=== PATIENT | female | born 1955 | race Two or more races ===

== ENCOUNTER 2017-11-29 23:48 | Emergency (ER) | payer OTHER ==
[~2017-11-29] VITALS: Ht 160 cm; Wt 67.1 kg
[~2017-11-29 23:48] MED LIST: ALBUTEROL SULF8.5 GM INH; ATARAX50 MG ORAL; AZITHROMYCIN250 MG ORAL; BENADRYL25 M3 PO; BENADRYL25 MG PO; DIABETA5 MG PO; ELIMITE 5% CREA60 GM TOPIC; FAMOTIDINE20 MG ORAL; GLIPIZIDE5 MG ORAL; JANUMET 50-1,01 EACH ORAL; LORATADINE10 M1 PO; LOSARTAN POTASS50 MG ORAL; PERMETHRIN60 GM TOPIC; POTASSIUM CHLO20 ME3 PO; PREDNISONE20 MG ORAL; ROBITUSSIN DM5 ML PO
[2017-11-30 00:10] VITALS: BP 157/72
[2017-11-30] MEDS ORDERED: FLONASE ALLERG9.9 ML NS (01:43)
[2017-11-30] MEDS ORDERED: PHENERGAN6.25 MG/5 ORAL (01:43)
[2017-11-30 01:59] VITALS: BP 164/77
--- NOTE | 2017-11-30 02:54 | Emergency Room Report ---
History of Present Illness General Chief Complaint: Flu Like Symptoms Source: Patient Present Illness HPI 62-year-old female walks in with 2-3 days of dry cough, nasal congestion, bilateral earache Denies fevers, chills, shortness of breath, chest pain no History of smoking, COPD or asthma Denies myalgias or other flulike symptoms Allergies: Coded Allergies: CODEINE (Verified Allergy, Unknown, 11/30/17) PENICILLINS (Verified Allergy, Unknown, 11/30/17) Patient History Past Medical History: none, old chart reviewed Past Surgical History: none Pertinent Family History: none Social History: Denies: smoking, alcohol use, drug use Last Menstrual Period: n/a Now: No Immunizations: UTD Reviewed Nursing Documentation: PMH: Agreed; PSxH: Agreed Nursing Documentation-PMH Hx Cardiac Problems: Yes Hx Hypertension: Yes Hx Diabetes: Yes Review of Systems All Other Systems: negative except mentioned in HPI Physical Exam Vital Signs Date Time Temp Pulse Resp B/P (MAP) Pulse Ox O2 Delivery O2 Flow Rate FiO2 11/30/17 00:04 98.0 88 16 157/72 97 98.1 11/30/17 01:59 Room Air Sp02 EP Interpretation: reviewed, normal General Appearance: normal inspection, well appearing, no apparent distress, alert, GCS 15, non-toxic Head: normocephalic, atraumatic Eyes: bilateral eye PERRL, bilateral eye EOMI ENT: normal ENT inspection, hearing grossly normal, normal pharynx, no angioedema, normal voice, TMs + canals normal, uvula midline, moist mucus membranes Neck: normal inspection, full range of motion, supple, thyroid normal, no meningismus, no bony tend Respiratory: normal inspection, lungs clear, normal breath sounds, no rhonchi, no respiratory distress, no retraction, no accessory muscle use, no wheezing, speaking full sentences Cardiovascular #1: regular rate, rhythm, no edema, no JVD, normal capillary refill Gastrointestinal: normal inspection, normal bowel sounds, non tender, soft, no mass, no peritonitis, non-distended, no guarding, no hernia, no pulsatile mass Genitourinary: no CVA tenderness Musculoskeletal: normal inspection, back normal, normal range of motion, no calf tenderness, pelvis stable, Wilmar's Sign negative Neurologic: normal inspection, alert, oriented x3, responsive, 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, motor strength/tone normal, cerebellar normal, normal gait, speech normal Psychiatric: normal inspection, judgement/insight normal, mood/affect normal, no suicidal/homicidal ideation, no delusions Skin: normal inspection, normal color, no rash Lymphatic: normal inspection, no adenopathy Medical Decision Making Diagnostic Impression: Primary Impression: URI (upper respiratory infection) Qualified Codes: J06.9 - Acute upper respiratory infection, unspecified ER Course Likely viral URI Vital signs stable afebrile, nonseptic appearing Lungs clear to auscultation, no wheezing or rhonchi Suspicion for asthma, pneumonia Refused ventolin Rx ER course: Patient has remained stable during ED stay. Disposition: Patient is to be discharged to home. Prescriptions given are Promethazine, flonase Patient is instructed to follow up with their primary care doctor within 5 days. Strict return precautions discussed with patient such as fever, chills, worsening/severe pain, nausea, vomiting, which may indicate severe illness. Patient verbalizes understanding and agrees with plan. Please note that this Emergency Department Report was dictated using [employer] director technology software, occasionally this can lead to erroneous entry secondary to interpretation by the dictation equipment Last Vital Signs Date Time Temp Pulse Resp B/P (MAP) Pulse Ox O2 Delivery O2 Flow Rate FiO2 11/30/17 01:59 88 18 164/77 100 Room Air 11/30/17 00:10 98.0 98.0 Status: improved Disposition: HOME, SELF-CARE Condition: Improved Scripts Promethazine/Dextromethorphan (Promethazine-Dm Syrup) 473 Ml Syrup 1 TSP ORAL Q6H PRN for For Cough, #118 ML 0 Refills Prov: DAWN FELIX M.D. 11/30/17 Fluticasone Propionate (Flonase Allergy Relief) 9.9 Ml Scott.susp 9.9 ML NS BID for nasal congestion, earache for 7 Days, #1 UNIT Prov: DAWN FELIX M.D. 11/30/17 DAWN FELIX M.D. Nov 30, 2017 02:53
== END 2017-11-30 02:00 | disposition home or self-care (01) ==
LOC: EMR 11-30 00:10
DX: J06.9 Acute upper respiratory infection, unspecified (principal); I10 Essential (primary) hypertension; E11.9 Type 2 diabetes mellitus without complications
CPT/HCPCS: 99284

== ENCOUNTER 2019-11-30 21:27 | Emergency (ER) | payer OTHER ==
[~2019-11-30] VITALS: Ht 160 cm; Wt 67.6 kg
[~2019-11-30 21:27] MED LIST changes: +FLONASE ALLERG9.9 ML NS; +PHENERGAN6.25 MG/5 ORAL
[2019-11-30 21:40] VITALS: BP 155/69
--- NOTE | 2019-11-30 21:40 | NUR ---
ER Nurse Note: Pt walked in c/o clear discharge and slight blood from umbilicus for two days. Pt stated she had surgery on her abd 20 years ago but now states she it is infected with strong foul odor. Will continue to monitor.
[2019-11-30] MEDS ORDERED: CEPHALEXIN500 M1 ORAL (21:51)
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
[2019-11-30 22:06] VITALS: BP 155/69
--- NOTE | 2019-11-30 22:06 | NUR ---
ED Nurse Note: Umbilicus cleaned by ERMD. Pt cleared by health care Provider for discharge. DC instructions/prescription was given and explained to pt and verbalized understanding of teachings. Instructed pt to follow up with primary care physcian within one to two days. All medical deviecs such as ID band removed. Pt is AAO x4, ambulatory and left with all personal belongings.
== END 2019-11-30 22:06 | disposition home or self-care (01) ==
LOC: EMR 21:56
DX: R19.8 Other specified symptoms and signs involving the digestive system and abdomen (principal); Z88.6 Allergy status to analgesic agent; Z88.0 Allergy status to penicillin; E11.9 Type 2 diabetes mellitus without complications; I10 Essential (primary) hypertension
CPT/HCPCS: 99282

== ENCOUNTER 2020-06-11 21:20 | Emergency (ER) | payer MEDICARE, OTHER ==
[~2020-06-11] VITALS: Ht 160 cm; Wt 68.0 kg
[~2020-06-11 21:20] MED LIST changes: +CEPHALEXIN500 M1 ORAL
[2020-06-11 21:25] VITALS: BP 142/81
--- NOTE | 2020-06-11 21:25 | NUR ---
ED Nurse Note: walked in to ed c/o sore throat and cough with phlegm onset 4 days ago. denies fever, temp 98.4 at triage. denies cp. vss, nad, aaox4, ambulatory, ermd at bedside
--- NOTE | 2020-06-11 21:58 | Emergency Room Report ---
History of Present Illness General Chief Complaint: Sore Throat Present Illness HPI Patient is a 64-year-old female presents for increased congestion and sore throat. Associated nonproductive cough. Previous similar symptoms in the past. Denies any fever. Had intermittent episodes. Denies any vomiting or diarrhea. Reportedly admitting well. Denies any loss of smell. Previous similar symptoms that had resolved with codeine cough syrup. 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 Patient History Past Medical History: see triage record Reviewed Nursing Documentation: PMH: Agreed; PSxH: Agreed Nursing Documentation-PMH Hx Cardiac Problems: Yes Hx Hypertension: Yes Hx Diabetes: Yes Review of Systems All Other Systems: negative except mentioned in HPI Physical Exam Vital Signs Date Time Temp Pulse Resp B/P (MAP) Pulse Ox O2 Delivery O2 Flow Rate FiO2 06/11/20 21:23 98.4 72 16 155/83 (107) 98 Room Air General Appearance: well appearing, no apparent distress, alert, GCS 15 Head: normocephalic, atraumatic ENT: hearing grossly normal, normal voice Neck: full range of motion, supple Respiratory: lungs clear, no respiratory distress, speaking full sentences Cardiovascular #1: normal inspection, no edema Gastrointestinal: normal inspection Musculoskeletal: no calf tenderness Neurologic: alert, motor strength/tone normal, 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 Differential diagnosis include was not limited to bronchitis, pneumonia, coronavirus infection, among others. Chest x-ray was ordered due to patient's cough. Chest x-ray 1 view interpreted by me showed normal cardiac size without evident infiltrate. Patient does not appear to have any evidence of respiratory distress. Patient does not appear to require emergency interventions at this time. She is given prescription for medications for symptomatic treatment of cough. She was advised to have outpatient coronavirus testing performed. The patient is advised to follow up with primary care doctor in 1-2 days. Patient is advised to return if any worsening condition or if any changes in status that are concerning. This report is dictated with [employer] sexual health physician software which may occasionally lead to discrepancies related to use of this software. . . Last Vital Signs Date Time Temp Pulse Resp B/P (MAP) Pulse Ox O2 Delivery O2 Flow Rate FiO2 06/11/20 21:23 98.4 72 16 155/83 (107) 98 Room Air Status: improved Disposition: HOME, SELF-CARE Condition: Stable Scripts Guaifenesin/Dextromethorphan* (Guaifenesin Dm Syrup*) 5 Ml Syrup 5 ML ORAL Q8H PRN for FOR COUGH, #118 ML 0 Refills Prov: Hero Maddox MD 06/11/20 Hero Maddox MD Jun 11, 2020 21:58
[2020-06-11] MEDS ORDERED: guaiFENesin 100mg/5ml Liq ud ORAL ONE (22:00)
--- NOTE | 2020-06-11 22:00 | NUR ---
ED Nurse Note: xr at bedside
--- NOTE | 2020-06-11 22:42 | Diagnostic Imaging Report ---
EXAM: XR Chest, 1 View CLINICAL HISTORY: COUGH TECHNIQUE: Frontal view of the chest. COMPARISON: Chest radiograph dated 07/03/2015 FINDINGS: Lungs: Unremarkable. No consolidation. Pleural space: Unremarkable. No pneumothorax. Heart: Unremarkable. No cardiomegaly. Mediastinum: Unremarkable. Bones/joints: Unremarkable. IMPRESSION: No acute cardiopulmonary disease.
[2020-06-11] MEDS ORDERED: GUAIFENESIN DM118 M1 ORAL (22:45)
[2020-06-11 22:50] VITALS: BP 147/71
--- NOTE | 2020-06-11 22:50 | NUR ---
ER DISCHARGE NOTE: Patient is cleared to be discharged per ERMD, pt is aox4, on room air, with stable vital signs. pt was given dc and prescription instructions, pt was able to verbalize understanding, pt id band removed without complications. pt is able to ambulate with steady gait. pt took all belongings.
== END 2020-06-11 22:50 | disposition home or self-care (01) ==
LOC: EMR 21:55
DX: R05 Cough (principal); R07.0 Pain in throat; Z88.0 Allergy status to penicillin; Z88.6 Allergy status to analgesic agent; E11.9 Type 2 diabetes mellitus without complications; I10 Essential (primary) hypertension
CPT/HCPCS: 71045; 99283

== ENCOUNTER 2020-07-05 06:33 | Emergency (ER) | payer MEDICARE, OTHER ==
[~2020-07-05] VITALS: Ht 157.5 cm; Wt 72.6 kg
[~2020-07-05 06:33] MED LIST changes: +GUAIFENESIN DM118 M1 ORAL
--- NOTE | 2020-07-05 06:56 | NUR ---
ED Nurse Note: Patient walked in from home c/o fast heart beat, patient states she was sleeping and was awoken by it. Patient aao x 4 and ambulatory. Patient changed into gown and placed on cardiac rehab nurse. No acute distress noted during assessment. ERMD at bedside.
[2020-07-05 06:57] VITALS: BP 176/80
[2020-07-05 07:17] LABS: ANION GAP 9 mmol/L (5-15); BLOOD UREA NITROGEN 11 mg/dL (7-18); CALCIUM 9.5 MG/DL (8.5-10.1); CARBON DIOXIDE 25 MMOL/L (21-32); CHLORIDE 104 MMOL/L (98-107); CREATININE 0.9 MG/DL (0.55-1.30); POTASSIUM 3.5 MMOL/L (3.5-5.1); SODIUM 138 MMOL/L (136-145)
--- NOTE | 2020-07-05 07:20 | Emergency Room Report ---
History of Present Illness General Chief Complaint: Palpitations Source: Patient Present Illness HPI The patient states that she was woken up this a.m. with a "pounding" heart. She states that was not fast. She states it felt like it was strong and pounding. She states she has had this previously intermittently. She states she has undergone evaluation as an inpatient in the hospital for these same symptoms. She also notes that during that time she felt very short of breath. She states currently her symptoms have resolved. She denies cough or congestion. She denies fever or chills. She states that 3 weeks ago was diagnosed with COVID- 19. She states that she was told she has a mild case of this. She denies any recurrence of these symptoms. She denies chest pain. Denies abdominal pain. She denies nausea or vomiting. She denies any association with exertion. She has no other complaints. 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 Patient History Past Medical History: see triage record, DM, HTN Social History: Denies: smoking, alcohol use, drug use Reviewed Nursing Documentation: PMH: Agreed; PSxH: Agreed Nursing Documentation-PMH Hx Cardiac Problems: Yes Hx Hypertension: Yes Hx Diabetes: Yes Review of Systems All Other Systems: negative except mentioned in HPI Physical Exam Vital Signs Date Time Temp Pulse Resp B/P (MAP) Pulse Ox O2 Delivery O2 Flow Rate FiO2 07/05/20 06:37 98.4 91 16 178/75 (109) 96 Room Air Sp02 EP Interpretation: reviewed, normal General Appearance: no apparent distress, alert, GCS 15, non-toxic Head: normocephalic, atraumatic Eyes: bilateral eye normal inspection, bilateral eye PERRL ENT: hearing grossly normal, normal pharynx, no angioedema, normal voice Neck: full range of motion, supple/symm/no masses Respiratory: chest non-tender, lungs clear, normal breath sounds, no respiratory distress, no retraction, no accessory muscle use, speaking full sentences Cardiovascular #1: regular rate, rhythm, no edema Gastrointestinal: normal bowel sounds, non tender, soft, non-distended, no guarding, no rebound Rectal: deferred Musculoskeletal: back normal, normal range of motion, gait/station normal, non- tender Neurologic: alert, motor strength/tone normal, oriented x3, sensory intact, responsive, speech normal Psychiatric: judgement/insight normal, memory normal, mood/affect normal, no suicidal/homicidal ideation Skin: no rash, normal color Medical Decision Making Diagnostic Impression: Primary Impression: COVID-19 Additional Impression: Palpitations ER Course I suspect the palpitations that the patient is presenting with is a nonemergent in etiology. Regarding the history, the patient has no history of structural heart disease or coronary artery disease, no family history of sudden , has no shortness of breath, and the syncope is not exertional. On physical exam, the patient is not hypotensive, has no findings of CHF, and no significant cardiac murmur suggestive of valvular heart disease or cardiac outflow obstruction. The patient reports no history of seizure or head trauma. EKG showed no evidence of concerning findings of QT prolongation, Brugada syndrome or significant ST changes suggestive of acute ischemia, dysrhythmias or significant conduction abnormalities. On laboratory evaluation, blood sugar was normal and the patient is not anemic. The patient was counseled that, though unlikely, the possibility of an emergent cause of her palpitations may be present and that the patient should return immediately if symptoms persist or worsen. I believe the patient is stable for discharge to followup with her PMD for further workup. The patient's COVID-19 test is positive here in emergency department. Possibly the patient's symptoms could be related to COVID-19. However, the patient did state that she was positive for COVID-19 3 weeks ago. Overall she is well-appearing without any evidence of respiratory distress or symptoms. The patient's chest x-ray is clear. I will start the patient on a baby aspirin daily as a precaution given the evolving thought that COVID-19 does cause coagulopathy/pro coagulopathy. The patient was educated to follow-up closely with her primary care physician. This patient was evaluated in the context of the global COVID-19 pandemic, which necessitated consideration that the patient might be at risk for infection with the [id number] virus that causes COVID-19. Institutional protocols and algorithms that pertain to the evaluation of patients at risk for COVID-19 and the state of rapid change based on information released by multiple regulatory bodies including the CDC and federal and state organizations. These policies and algorithms were followed during the patient's care in the ED. Laboratory Tests Test 07/05/20 06:50 07/05/20 07:51 White Blood Count 9.3 K/UL (4.8-10.8) Red Blood Count 4.34 M/UL (4.20-5.40) Hemoglobin 13.4 G/DL (12.0-16.0) Hematocrit 38.3 % (37.0-47.0) Mean Corpuscular Volume 88 FL (80-99) Mean Corpuscular Hemoglobin 31.0 PG (27.0-31.0) Mean Corpuscular Hemoglobin Concent 35.1 G/DL (32.0-36.0) Red Cell Distribution Width 12.9 % (11.6-14.8) Platelet Count 401 K/UL (150-450) Mean Platelet Volume 7.1 FL (6.5-10.1) Neutrophils (%) (Auto) 69.2 % (45.0-75.0) Lymphocytes (%) (Auto) 22.2 % (20.0-45.0) Monocytes (%) (Auto) 6.4 % (1.0-10.0) Eosinophils (%) (Auto) 1.8 % (0.0-3.0) Basophils (%) (Auto) 0.4 % (0.0-2.0) Sodium Level 138 MMOL/L (136-145) Potassium Level 3.5 MMOL/L (3.5-5.1) Chloride Level 104 MMOL/L (98-107) Carbon Dioxide Level 25 MMOL/L (21-32) Anion Gap 9 mmol/L (5-15) Blood Urea Nitrogen 11 mg/dL (7-18) Creatinine 0.9 MG/DL (0.55-1.30) Estimated Glomerular Filtration Rate > 60 mL/min (>60) Glucose Level 200 MG/DL (74-106) H Calcium Level 9.5 MG/DL (8.5-10.1) Total Bilirubin 0.8 MG/DL (0.2-1.0) Aspartate Amino Transferase (AST) 20 U/L (15-37) Alanine Aminotransferase (ALT) 30 U/L (12-78) Alkaline Phosphatase 87 U/L (46-116) Troponin I 0.000 ng/mL (0.000-0.056) Total Protein 7.0 G/DL (6.4-8.2) Albumin 4.0 G/DL (3.4-5.0) Globulin 3.0 g/dL Albumin/Globulin Ratio 1.3 (1.0-2.7) Thyroid Stimulating Hormone (TSH) 2.998 uiU/mL (0.358-3.740) Free Thyroxine 1.16 NG/DL (0.76-1.46) Urine Color Pale yellow Urine Appearance Clear Urine pH 6 (4.5-8.0) Urine Specific [place] 1.005 (1.005-1.035) Urine Protein Negative (NEGATIVE) Urine Glucose (UA) Negative (NEGATIVE) Urine Ketones Negative (NEGATIVE) Urine Blood Negative (NEGATIVE) Urine Nitrite Negative (NEGATIVE) Urine Bilirubin Negative (NEGATIVE) Urine Urobilinogen Normal MG/DL (0.0-1.0) Urine Leukocyte Esterase Negative (NEGATIVE) Microbiology Date/Time Source Procedure Growth Status 07/05/20 06:50 Nasopharynx SARS-CoV-2 RdRp Gene Assay - Final Complete EKG Diagnostic Results Troponin ordered: Yes EKG Time: 06:42 EP Interpretation: Y Rate: normal Rhythm: NSR ST Segments: no acute changes Rhythm Strip Diag. Results EP Interpretation: yes Rate: 90's Rhythm: NSR, no PVC's, no ectopy Chest X-Ray Diagnostic Results Chest X-Ray Diagnostic Results : Chest X-Ray Ordered: Yes # of Views/Limited/Complete: 1 View Indication: Other - palpitations EP Interpretation: Yes Interpretation: no consolidation, no effusion, no pneumothorax, no acute cardiopulmonary disease Impression: No acute disease Electronically Signed by: Vida Mccann DO Last Vital Signs Date Time Temp Pulse Resp B/P (MAP) Pulse Ox O2 Delivery O2 Flow Rate FiO2 07/05/20 06:57 98.4 88 16 176/80 100 Room Air Status: improved Disposition: HOME, SELF-CARE Condition: Improved Referrals: NOT CHOSEN IPA/,REFERRING (PCP) Patient Instructions: Palpitations Vida Mccann DO Jul 05, 2020 07:20
[2020-07-05 07:30] LABS: ALANINE AMINOTRANSFERASE 30 U/L (12-78); ALBUMIN/GLOBULIN RATIO 1.3 (1.0-2.7); ALKALINE PHOSPHATASE 87 U/L (46-116); ASPARTATE AMINO TRANSFERASE 20 U/L (15-37); BASOPHILS % (AUTO) 0.4 % (0.0-2.0); BILIRUBIN,TOTAL 0.8 MG/DL (0.2-1.0); EOSINOPHILS % (AUTO) 1.8 % (0.0-3.0); HEMATOCRIT 38.3 % (37.0-47.0); HEMOGLOBIN 13.4 G/DL (12.0-16.0); LYMPHOCYTES % (AUTO) 22.2 % (20.0-45.0); MEAN CORPUSCULAR VOLUME 88 FL (80-99); MONOCYTES % (AUTO) 6.4 % (1.0-10.0); NEUTROPHILS % (AUTO) 69.2 % (45.0-75.0); PLATELET COUNT 401 K/UL (150-450); RED BLOOD COUNT 4.34 M/UL (4.20-5.40); RED CELL DISTRIBUTION WIDTH 12.9 % (11.6-14.8); WHITE BLOOD COUNT 9.3 K/UL (4.8-10.8)
--- NOTE | 2020-07-05 07:45 | NUR ---
ED Nurse Note: Labaratory notified ED that pt is COVID +. Pt placed in isolation room with COVID precautions. Pt is wearing mask. COVID sign in sheet on door. CN and NESS notified.
[2020-07-05 08:29] LABS: APPEARANCE,URINE CLEAR; BILIRUBIN, URINE NEGATIVE (NEGATIVE); COLOR,URINE PALE YELLOW; GLUCOSE, URINE (UA) NEGATIVE (NEGATIVE); KETONES,URINE NEGATIVE (NEGATIVE); LEUKOCYTE ESTERASE ,URINE NEGATIVE (NEGATIVE); NITRITE,URINE NEGATIVE (NEGATIVE); PH,URINE 6 (4.5-8.0); PROTEIN,URINE NEGATIVE (NEGATIVE); UROBILINOGEN,URINE NORMAL MG/DL (0.0-1.0)
[2020-07-05] MEDS ORDERED: ASPIRIN81 MG ORAL (08:42)
--- NOTE | 2020-07-05 08:57 | NUR ---
ER DISCHARGE NOTE: Patient is cleared to be discharged per ERMD, pt is aox4, on room air, with stable vital signs. pt was given dc and prescription instructions, pt was able to verbalize understanding, pt id band removed. pt is able to ambulate with steady gait. pt took all belongings. Pt provided COVID discharge instructions.
[2020-07-05 08:58] VITALS: BP 152/78
--- NOTE | 2020-07-05 13:17 | Diagnostic Imaging Report ---
Indication: Palpitations, chest discomfort Technique: One view of the chest Comparison: none Findings: Lungs and pleural spaces are clear. Heart size is normal. Impression: No acute process
== END 2020-07-05 08:59 | disposition home or self-care (01) ==
LOC: EMR 06:50
DX: U07.1 COVID-19 (principal); R00.2 Palpitations; Z88.0 Allergy status to penicillin; Z88.6 Allergy status to analgesic agent; E11.9 Type 2 diabetes mellitus without complications; I10 Essential (primary) hypertension
CPT/HCPCS: 36415; 71045; 80053; 81003; 84439; 84443; 84484; 85025; 93005; 96360; 99284; J7030; U0002